=== PATIENT | female | born 1940 | race African-American/Black ===

== ENCOUNTER → 2018-12-09 | Outpatient (CLI) | payer OTHER, BC ==
[~2018-12-09] MED LIST: ADALAT CC60 MG PO; ASPIR 8181 MG PO; ATORVASTATIN CA40 MG PO; BIOTIN5 M1 PO; EFFIENT10 MG PO; FISH OIL 1,0001 EAC8 PO; LEVOTHYROXIN0.112 M1 PO; LEVOTHYROXINE100 MCG PO; LIPITOR80 MG PO; METOPROLOL SUCC25 M1 PO; NITROSTAT0.4 M1 SL; TYLENOL325 MG PO; VITAMIN B-125000 MC1 PO; VITAMIN D 5050000 I1 PO; VITAMIN D31000 UNI2 PO; ZETIA10 MG PO; ZIAC 2.5/6.252.5 M1 PO
== END ==
LOC: NUC 08:29
DX: I25.10 Atherosclerotic heart disease of native coronary artery without angina pectoris (principal); E78.5 Hyperlipidemia, unspecified; I25.2 Old myocardial infarction; I10 Essential (primary) hypertension; Z79.82 Long term (current) use of aspirin; Z95.5 Presence of coronary angioplasty implant and graft

== ENCOUNTER 2019-04-11 21:25 | Inpatient (IN) | payer OTHER, BC ==
[~2019-04-11] VITALS: Ht 162.6 cm; Wt 53.8 kg
[2019-04-11 21:26] VITALS: BP 108/78
[2019-04-11 22:00] LABS: BASOPHILS 2.1 % (0.0-2.0); HEMATOCRIT 41.2 % (37.0-47.0); HEMOGLOBIN 13.3 gm/dL (12.0-15.0); LYMPHOCYTES 35.5 % (24.0-44.0); MCH 27.4 pg (26.0-34.0); MCHC 32.4 g/dL (28.0-37.0); MCV 84.6 fL (80.0-100.0); PLATELET COUNT 224 thou/uL (150-400); POLYS 48.4 % (36.0-66.0); RBC 4.87 mil/uL (4.20-5.00); WBC 8.2 thou/uL (4.0-11.0)
[2019-04-11 22:15] LABS: TROPONIN-I 0.11 ng/mL (<0.06)
[2019-04-11 22:57] LABS: CALCIUM 9.3 mg/dL (8.5-10.1); POTASSIUM 3.9 mmol/L (3.5-5.1)
[2019-04-11 23:01] LABS: URINE BILIRUBIN NEGATIVE (Negative); URINE BLOOD NEGATIVE (Negative); URINE CLARITY CLEAR; URINE COLOR YELLOW; URINE GLUCOSE-RANDOM* NEGATIVE (Negative); URINE KETONES TRACE (Negative); URINE NITRITE-REFLEX NEGATIVE (Negative); URINE PROTEIN (DIPSTICK) NEGATIVE (Negative); URINE SPECIFIC GRAVITY <= 1.005 (1.005-1.035); URINE UROBILINOGEN 0.2 E.U./dl (0.2-1.0)
[2019-04-11 23:14] LABS: URINE LEUKOCYTES-REFLEX 3+ (Negative)
[2019-04-11 23:20] LABS: BACTERIA-REFLEX None Seen /HPF (None Seen); CASTS None Seen /LPF (None Seen); CRYSTALS None Seen /LPF (None Seen); MUCUS None Seen strn/LPF (None Seen); SQUAMOUS None Seen /LPF (0-3); URINE RBC None Seen /HPF (0-2); URINE WBC-REFLEX None Seen /HPF (0-5)
[2019-04-11 23:55] VITALS: BP 121/74
[2019-04-12] VITALS (7 sets, daily range): BP systolic 104–115; BP diastolic 44–66
[2019-04-12] MEDS ORDERED: LEVO-T100 MCG PO (00:11)
[2019-04-12] MEDS ORDERED: LEVOTHYROXINE88 MCG PO (02:35)
--- NOTE | 2019-04-12 08:06 | EKG ---
[address] [place] [address] ELECTROCARDIOGRAM REPORT Name: MICHAEL MENDOZA Room #: 364-P ADM IN M.R.#: [id number] Admission: 04/11/19 Attend Phys: Ceci Coffey MD Discharge: Date of : 42 Report #: [id number] THIS REPORT FOR: //name// [facility] ED Test Date: 2019-04-11 Test Time: 21:47:04 Pat Name: MICHAEL MENDOZA Department: Room: 364 Gender: F Prior Authorization Nurse: leigh : 1940 Requested By: Virgen Humphries Order Number: [id number] MD: Maycol Johnson Measurements Intervals [place] Rate: 175 P: ID: QRS: 32 QRSD: 75 T: 28 QT: 270 QTc: 461 Interpretive Statements Atrial fibrillation with rapid V-rate Low voltage, precordial leads Compared to ECG 09/16/2015 07:00:48 Low QRS voltage now present Sinus bradycardia no longer present Electronically Signed On 04-12-2019 8:06:35 [place] by Maycol Johnson [email or web address] <ELECTRONICALLY SIGNED> By: Maycol Johnson MD, [facility] 04/12/19 0806 Maycol Johnson MD, [facility] /EPI
--- NOTE | 2019-04-12 08:08 | EKG ---
[place] [address] [facility] [place] [address] ELECTROCARDIOGRAM REPORT Name: MICHAEL MENDOZA Room #: 364-P ADM IN M.R.#: [id number] Admission: 04/11/19 Attend Phys: Ceci Coffey MD Discharge: Date of : 42 Report #: [id number] THIS REPORT FOR: //name// [facility] Test Date: 2019-04-12 Test Time: 03:34:19 Pat Name: MICHAEL MENDOZA Department: Room: 364 P Gender: F [employer]ail[employer] Operator: gregory SOW : 1940 Requested By: Tiffanie Padilla Order Number: [id number] MD: Maycol Johnson Measurements Intervals [place] Rate: 63 P: 18 KS: 166 QRS: -2 QRSD: 85 T: 64 QT: 422 QTc: 433 Interpretive Statements Sinus rhythm Poor R wave progression Compared to ECG 09/16/2015 07:00:48 sinus rhythm has replaced atrial fibrillation Electronically Signed On 04-12-2019 8:08:25 [place]LEACHER by Maycol Johnson [email or web address] <ELECTRONICALLY SIGNED> By: Maycol Johnson MD, [facility] 04/12/19 0808 3 3 Maycol Johnson MD, [facility] /EPI
[2019-04-12 10:58] LABS: CALCIUM 8.8 mg/dL (8.5-10.1); CREATININE 0.9 mg/dL (0.6-1.0); POTASSIUM 3.3 mmol/L (3.5-5.1); TROPONIN-I 0.2 ng/mL (<0.06)
--- NOTE | 2019-04-12 12:12 | 2DMMODE ---
[facility] [address] [place] [address] 2 D/M-MODE ECHOCARDIOGRAM Name: MICHAEL MENDOZA Room #: 364-P ADM IN M.R.#: [id number] Admission: 04/11/19 Attend Phys: Ceci Coffey, Discharge: Date of : 42 Report #: [id number] THIS REPORT FOR: //name// APPROVED REPORT Study performed: 04/12/2019 11:17:06 EXAM: Comprehensive 2D, Doppler, and color-flow Echocardiogram Patient Location: Echo lab Room #: 364 Status: routine BSA: 1.56 HR: 74 bpm BP: 112/62 mmHg Rhythm: NSR Other Information Study Quality: Good Indications New onset Afib. Hx: CAD, stent, HTN, HLP. 2D Dimensions RVDd: 30.68 mm IVSd: 12.87 (7-11mm) LVOT Diam: 21.02 (18-24mm) LVDd: 41.79 mm PWd: 11.34 (7-11mm) Ascending Ao: 38.40 (22-36mm) LVDs: 27.62 (25-40mm) Aortic Root: 34.71 mm Volumes Left Atrial Volume (Systole) Single Plane 4CH: 31.44 mL Single Plane 2CH: 39.30 mL LA ESV Index: 24.00 mL/m2 Aortic Valve AoV Peak Blayne.: 2.61 m/s AO Peak Gr.: 27.22 mmHg LVOT Max P.39 mmHg AO Mean Gr.: 18.06 mmHg AO V2 Mean: 2.04 m/s LVOT Max V: 0.92 m/s AO V2 VTI: 58.59 cm JAC Vmax: 1.22 cm2 AI Vmax: 4.68 m/s AI [place]: 3.05 m/s2 AI PHT: 445.01 ms [facility] [place] [employer] [place] [address] 2 D/M-MODE ECHOCARDIOGRAM Name: MICHAEL MENDOZA Room #: 364-P [facility] IN .R.#: [id number] Admission: 04/11/19 Attend Phys: Ceci Coffye, Discharge: Date of : 42 Report #: [id number] Mitral Valve E/A Ratio: 0.6 MV Decel. Time: 256.12 ms MV E Max Blayne.: 0.69 m/s MV A Blayne.: 1.07 m/s MV PHT: 74.28 ms IVRT: 96.89 ms Pulmonary Valve PV Peak Blayne.: 0.63 m/s PV Peak Gr.: 1.58 mmHg Pulmonary Vein P Vein S: 0.68 m/s P Vein A: 0.35 m/s P Vein D: 0.62 m/s P Vein A Dur.: 93.4 msec P Vein S/D Ratio: 1.10 Tricuspid Valve TR Peak Blayne.: 1.99 m/s RAP Estimate: 5.00 mmHg TR Peak Gr.: 16.00 mmHg PA Pressure: 21.00 mmHg Left Ventricle The left ventricle is normal size. There is normal LV segmental wall motion. Mild basal septal hypertrophy is present. Left ventricular systolic function is normal. LVEF is 55-60%. Mild diastolic dysfunction is present (impaired relaxation pattern). Right Ventricle The right ventricle is normal size. The right ventricular systolic function is normal. Atria The left atrium size is normal. The right atrium size is normal. Aortic Valve The aortic valve is normal in structure; moderately calcified. Mild to moderate aortic regurgitation. There is moderate valvular aortic stenosis. Calculated aortic valve area is 1.2 cm2 with maximum pressure gradient of 27 mmHg and mean pressure gradient of 18 mmHg. Mitral Valve The mitral valve is normal in structure. Mild mitral annular calcification. Trace mitral regurgitation. [facility] [address] [place] [address] 2 D/M-MODE ECHOCARDIOGRAM Name: MICHAEL MENDOZA Room #: 364-P [facility] IN [facility]#: [id number] Admission: 04/11/19 Attend Phys: Ceci Coffey, Discharge: Date of : 42 Report #: [id number] Tricuspid Valve The tricuspid valve is normal in structure. Trace tricuspid regurgitation. Estimated PAP is 20-25mmHg. Pulmonic Valve The pulmonary valve is normal in structure. Mild pulmonic regurgitation. Great Vessels The aortic root is normal in size. The ascending aorta is borderline dilated. IVC is normal in size and collapses >50% with inspiration. Pericardium Small circumferential pericardial effusion. <Conclusion> The left ventricle is normal size. LVEF is 55-60%. The aortic valve is normal in structure; moderately calcified. Mild to moderate aortic regurgitation. There is moderate valvular aortic stenosis. Calculated aortic valve area is 1.2 cm2 with maximum pressure gradient of 27 mmHg and mean pressure gradient of 18 mmHg. The mitral valve is normal in structure. Mild mitral annular calcification. Trace mitral regurgitation. The tricuspid valve is normal in structure. Trace tricuspid regurgitation. Estimated PAP is 20-25mmHg. The pulmonary valve is normal in structure. Mild pulmonic regurgitation. Small circumferential pericardial effusion. <ELECTRONICALLY SIGNED> By: Roberto Dudley MD 04/12/191211 11 11 Roberto Dudley MD /INF
[2019-04-12 12:28] LABS: PHOSPHORUS 2.9 mg/dL (2.5-4.9)
[2019-04-12 13:09] LABS: URINE BILIRUBIN NEGATIVE (Negative); URINE BLOOD NEGATIVE (Negative); URINE CLARITY CLEAR; URINE COLOR YELLOW; URINE GLUCOSE-RANDOM* NEGATIVE (Negative); URINE KETONES NEGATIVE (Negative); URINE LEUKOCYTES-REFLEX NEGATIVE (Negative); URINE NITRITE-REFLEX NEGATIVE (Negative); URINE PROTEIN (DIPSTICK) NEGATIVE (Negative); URINE UROBILINOGEN 0.2 E.U./dl (0.2-1.0)
--- NOTE | 2019-04-12 17:08 | CATHLAB ---
[facility] [address] [place] [address] INVASIVE PROCEDURE REPORT Name: MICHAEL MENDOZA Room #: 364-P ADM IN M.R.#: [id number] Admission: 04/11/19 Attend Phys: Ceci Coffey, Discharge: Date of : 42 Report #: [id number] THIS REPORT FOR: //name// APPROVED REPORT Study performed: 04/12/2019 14:38:28 Patient Details Patient Status: In-Patient Room #: The patient is a 79 year-old female Event Personnel Pj Andrade Blind Eyeletter, Lg Longoria RN, Kenya Howard RN RN, Junaid Kenny Monitor Procedures Performed Art Access - R femoral artery* Left Heart Cath w/or w/o Coronaries [id number] [facility] [address] Initial Mod Sed Same Phys/QHP Gr5y [id number] 83582 Mod Sed Same Phys/QHP Ea [id number] Hemostasis with Manual pressure Indication Non-STEMI , Atrial fibrillation, Dyspnea, Chest pain Risk Factors HypercholesterolemiaPhysical Activity, Coronary Artery DiseaseHypertension Previous Procedures/Diagnoses Previous PCI Procedure Narrative The Right Groin^ was infiltrated with 1% Lidocaine subcutaneous anesthesia. A PINNACLE 4FR Sheath #[id number] sheath was inserted into the RFA^. Coronary angiography was performed using coronary diagnostic catheters. The right coronary system was accessed and visualized with a JR4 catheter. The left coronary system was accessed and visualized with a JL4 catheter. The left ventricle was accessed and visualized with a AL1 catheter. The patient tolerated the procedure well and there were no complications associated with the procedure. There was no hematoma. Intraoperative Conscious Sedation Sedation start time: 1533 Case end Time: 1620 [facility] [address] [place] [address] INVASIVE PROCEDURE REPORT Name: MICHAEL MENDOZA Room #: 364-P [facility] IN [facility]#: [id number] Admission: 04/11/19 Attend Phys: Ceci Coffey, Discharge: Date of : 42 Report #: [id number] Fentanyl 25 mcg Versed 1 mg Fluoro Time: 6.2 minutes Dose: DAP 5013.79 cGycm2 595 mGy Contrast Type and Amount: Omnipaque 85 ml Coronary Angiography The patient's coronary anatomy is right dominant. Diagnostic Cath Left Main This is a large caliber vessel, with disease at the distal segment. LAD There are previously placed stents in the ostium of the LAD extending into the mid LAD segment. There appears to be mild diffuse restenosis. Within the mid segment, there is a severe restenotic lesion, 70-80%. Diagonal 1 There are stents in the proximal segment, patent with mild restenosis. Circumflex There is a severe occlusion at the ostium, involving the distal portion of the left main artery, 80-90%. Right Coronary This is a dominant vessel with mild disease in the proximal segment, 30%. R PDA There is a patent stent in the proximal segment of the PDA with mild restenosis. RPLV This is a patent vessel, with no flow-limiting lesions. Left Ventriculography The left ventricle is normal in size with normal contractility. The left ventricular ejection fraction is estimated to be >55%. The patient has known moderate aortic stenosis on echocardiogram. Hemodynamics The aortic pressure is 137/65 mmHg with a mean of 28 mmHg. The left ventricular pressure is 162/8 mmHg with a mean of mmHg. The left ventricular end diastolic pressure is 25 mmHg. Conclusion 1. Severe two-vessel disease, one of them involving the ostium of the left circumflex artery and distal left main. 2. Patent RCA vessel with mild disease. 3. History of moderate aortic stenosis. [facility] [email or web address] [address] INVASIVE PROCEDURE REPORT Name: MICHAEL MENDOZA Room #: 364-P ADM IN M.R.#: [id number] Admission: 04/11/19 Attend Phys: Ceci Coffey, Discharge: Date of : 42 Report #: [id number] 4. Normal LV systolic function. 5. Recommend CV surgical consultation. <ELECTRONICALLY SIGNED> By: Pj Andrade MD 04/12/19 1708 170 1708 Pj Andrade MD /INF
[2019-04-13 04:35] VITALS: BP 120/70
[2019-04-13 05:49] LABS: ABSOLUTE NEUTROPHILS 4.6 thou/uL (1.4-8.2); BASOPHILS 0.7 % (0.0-2.0); EOSINOPHILS 2.3 % (0.0-3.0); HEMATOCRIT 38.2 % (37.0-47.0); HEMOGLOBIN 12.4 gm/dL (12.0-15.0); LYMPHOCYTES 25.2 % (24.0-44.0); MCH 27.6 pg (26.0-34.0); MCHC 32.5 g/dL (28.0-37.0); MCV 85.1 fL (80.0-100.0); MONOCYTES 9.5 % (1.0-8.0); PLATELET COUNT 198 thou/uL (150-400); POLYS 62.3 % (36.0-66.0); RBC 4.48 mil/uL (4.20-5.00); RDW 15.8 % (10.5-14.5); WBC 7.3 thou/uL (4.0-11.0)
[2019-04-13 05:57] LABS: CALCIUM 8.7 mg/dL (8.5-10.1); CREATININE 0.8 mg/dL (0.6-1.0); MAGNESIUM 2.1 mg/dL (1.8-2.4); POTASSIUM 3.2 mmol/L (3.5-5.1)
[2019-04-13 07:55] VITALS: BP 123/79
[2019-04-13 11:07] VITALS: BP 131/68
[2019-04-13 12:44] VITALS: BP 131/68
--- NOTE | 2019-04-13 17:49 | HC ---
[facility] [place] [address] CONSULTATION Name: MICHAEL MENDOZA Room #: 208-[facility] IN M.R.#: [id number] Admission: 04/11/19 Attend Phys: Ceci Coffey MD Discharge: 04/13/19 Date of : 42 Report #: [id number] THIS REPORT FOR: //name// CC: Ceci Cabrera We were asked to see the patient by Dr. Andrade. HISTORY OF PRESENT ILLNESS: The patient is a 79-year-old with coronary artery disease. The patient was admitted on Friday with chest pain and shortness of breath. This proved to be atrial fibrillation and the patient had chemical cardioversion with IV Cardizem and has been asymptomatic since. We note that cardiac catheterization was done yesterday for low level troponin elevation. The patient has a history of coronary stents placed in 2006 and 2014. Current catheterization shows an 80-90% ostial circumflex stenosis, right coronary has trivial disease. LAD has some restenosis in the mid portion. Left ventricular function is normal with an ejection fraction of 55%. We note that the patient has aortic stenosis with a mean gradient of 28 mm and a calculated valve area of 1.2. PAST MEDICAL HISTORY: Significant for hypertension and hyperlipidemia. MEDICATIONS: At home includes Fosamax, aspirin, biotin, Zyrtec, vitamin D, Zetia, fish oil, levothyroxine, nifedipine, Nitrostat and Lipitor. ALLERGIES: None known. SOCIAL HISTORY: Lives in [facility] with grandson, is a never smoker. FAMILY HISTORY: Significant for heart disease in father. REVIEW OF SYSTEMS: GENERAL: No fever, chills, weight change. EYES: Wears glasses. HEENT: Negative for hearing loss, headaches, nasal discharge. CARDIAC: As mentioned, chest pain and palpitations on admission with shortness of breath. RESPIRATORY: Shortness of breath associated with the atrial fibrillation. ENDOCRINE: Negative for goiter or tremor. SKIN: Negative for rash or infection. MUSCULOSKELETAL: Has had knee replacements, but no current problems with arthritis or myalgias. GASTROINTESTINAL: No nausea, vomiting blood. GENITOURINARY: No urgency, frequency, blood. 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 [facility] [address] [place] [address] CONSULTATION Name: MICHAEL MENDOZA Room #: 208-P [facility] IN .R.#: [id number] Admission: 04/11/19 Attend Phys: Ceci Coffey MD Discharge: 04/13/19 Date of : 42 Report #: [id number] PHYSICAL EXAMINATION: VITAL SIGNS: Temperature 97.4, heart rate 99, blood pressure 123/79. HEENT: Normocephalic. Pupils are round, equal. No icterus, no arcus. NECK: No mass, no bruit. There is a transmitted murmur. CHEST: Clear to auscultation. HEART: Rhythm regular with a high pitched aortic systolic murmur radiating to the neck. ABDOMEN: Soft, no mass, no tenderness. EXTREMITIES: No clubbing, cyanosis or edema. VASCULAR: I see no saphenous vein issues. MUSCULOSKELETAL: No asymmetry or deformity. NEUROLOGIC: No motor or sensory dysfunction. PSYCHIATRIC: Shows insight into problem and is oriented and appropriate. We note the patient has coronary artery disease with new circumflex stenosis and a potential restenosis in the LAD and also moderate aortic valve stenosis. Risks and details, options and alternatives, were discussed. I discussed surgery, which would include coronary artery bypass and aortic valve replacement and contrasted this with a less definitive approach involving addressing the circumflex lesion alone. The patient is clearly undecided and we note plans for discharge. It is not clear to me whether the patient will follow up with Dr. 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 Thank you for the consult. <ELECTRONICALLY SIGNED> By: Jason Martin MD 04/13/19 1749 1035 1045 Jason Martin MD /nt
== END 2019-04-13 15:30 | disposition home or self-care (01) | DRG 280 ==
LOC: ER 21:25 → EROBS 23:43 → 3W 23:43 → 2N 04-12 18:02 → ENTRNSPT 04-13 13:25 → EDTRNSPTSTS 04-13 13:25 → 2N 04-13 15:30
PROVIDERS: Emergency Medicine; Nurse Practitioner Family; ADMIT Internal Medicine
PROC: B2111ZZ Fluoroscopy of Multiple Coronary Arteries using Low Osmolar Contrast (ICD-10-PCS; principal; 2019-04-12)
PROC: 4A023N7 Measurement of Cardiac Sampling and Pressure, Left Heart, Percutaneous Approach (ICD-10-PCS; principal; 2019-04-12)
PROC: B2151ZZ Fluoroscopy of Left Heart using Low Osmolar Contrast (ICD-10-PCS; principal; 2019-04-12)
DX: I21.4 Non-ST elevation (NSTEMI) myocardial infarction (principal); I50.33 Acute on chronic diastolic (congestive) heart failure; I48.20 Chronic atrial fibrillation, unspecified; N39.0 Urinary tract infection, site not specified; I25.10 Atherosclerotic heart disease of native coronary artery without angina pectoris; E89.0 Postprocedural hypothyroidism; I11.0 Hypertensive heart disease with heart failure; E78.5 Hyperlipidemia, unspecified; F41.0 Panic disorder [episodic paroxysmal anxiety]; Z96.653 Presence of artificial knee joint, bilateral; E78.00 Pure hypercholesterolemia, unspecified; E55.9 Vitamin D deficiency, unspecified; R29.6 Repeated falls; E87.6 Hypokalemia; I35.0 Nonrheumatic aortic (valve) stenosis; Z95.5 Presence of coronary angioplasty implant and graft; Z90.710 Acquired absence of both cervix and uterus; Z90.49 Acquired absence of other specified parts of digestive tract; Z79.899 Other long term (current) drug therapy; Z79.82 Long term (current) use of aspirin; Z82.49 Family history of ischemic heart disease and other diseases of the circulatory system; Z80.8 Family history of malignant neoplasm of other organs or systems; Z94.89 Other transplanted organ and tissue status
CPT/HCPCS: 10081